=== PATIENT | female | born 1970 | race Caucasian/White ===

== ENCOUNTER 2019-01-02 06:44 | Emergency (ER) | payer BC ==
[~2019-01-02] VITALS: Ht 167.6 cm; Wt 59.0 kg
[2019-01-02 06:51] VITALS: BP 136/60
[2019-01-02] MEDS ORDERED: BACITRACIN ZINC OINT UDPKT TOP ONE (09:00)
== END 2019-01-02 09:47 | disposition home or self-care (01) ==
LOC: ER 06:44
DX: S60.222A Contusion of left hand, initial encounter (principal); S20.211A Contusion of right front wall of thorax, initial encounter; S63.502A Unspecified sprain of left wrist, initial encounter; V43.62XA Car passenger injured in collision with other type car in traffic accident, initial encounter; Y93.9 Activity, unspecified; Y92.410 Unspecified street and highway as the place of occurrence of the external cause
CPT/HCPCS: 73110; 73130; 81025; 99283